=== PATIENT | male | born 1960 | race Caucasian/White ===

== ENCOUNTER 2019-10-24 12:57 | Emergency (ER) | payer BC ==
--- NOTE | 2019-10-24 13:23 | EDM.PDOC ---
ED HPI GENERAL MEDICAL PROBLEM - General Chief Complaint: General Stated Complaint: COUGH,BODY ACHES,FEVER Time Seen by Provider: 10/24/19 13:22 Source of Information: Reports: Patient History Limitations: Reports: No Limitations - History of Present Illness INITIAL COMMENTS - FREE TEXT/NARRATIVE: developed fever with mild cough. This is progressed with body aches increased fever and worsening cough. Beyond 48 hour Tamiflu window at this time. Blood sugars have been averaging in 120s only does not test daily. Onset: Gradual Onset Date: 10/22/19 Onset Time: 12:00 Duration: Day(s):, Getting Worse Location: Reports: Head, Chest Quality: Reports: Burning Severity: Moderate Improves with: Reports: None Worsens with: Reports: Breathing Associated Symptoms: Reports: Cough, Fever/Chills Treatments [employer]: Reports: Acetaminophen - Related Data Allergies Allergy/AdvReac Type Severity Reaction Status Date / Time No Known Allergies Allergy Verified 10/24/19 13:08 Home Meds: Home Meds lisinopriL [Lisinopril] 40 mg PO DAILY 10/24/19 [History] Past Medical History Cardiovascular History: Reports: None, High Cholesterol Respiratory History: Reports: None Psychiatric History: Reports: None Endocrine/Metabolic History: Reports: Diabetes, Type II Social & Family History - Family History Family Medical History: Noncontributory ED ROS GENERAL - Review of Systems Review Of Systems: See Below Constitutional: Reports: Fever, Chills, Malaise HEENT: Reports: No Symptoms Respiratory: Reports: Cough Cardiovascular: Reports: No Symptoms. Denies: Chest Pain Endocrine: Reports: High Glucose GI/Abdominal: Reports: No Symptoms : Reports: No Symptoms Musculoskeletal: Reports: No Symptoms, Muscle Pain, Muscle Stiffness Skin: Reports: No Symptoms Neurological: Reports: No Symptoms Psychiatric: Reports: No Symptoms Hematologic/Lymphatic: Reports: No Symptoms Immunologic: Reports: No Symptoms ED EXAM, GENERAL - Physical Exam Exam: See Below Exam Limited By: No Limitations General Appearance: Alert, WD/WN, No Apparent Distress Ears: Normal External Exam, Normal Canal, Hearing Grossly Normal, Normal TMs Nose: Normal Inspection, Normal Mucosa, No Blood Throat/Mouth: Normal Inspection, Normal Lips, Normal Teeth, Normal Gums, Normal Oropharynx, Normal Voice, No Airway Compromise Head: Atraumatic, Normocephalic Neck: Normal Inspection, Supple, Non-Tender, Full Range of Motion Respiratory/Chest: No Respiratory Distress, Lungs Clear, Normal Breath Sounds, No Accessory Muscle Use, Chest Non-Tender Cardiovascular: Normal Peripheral Pulses, Regular Rate, Rhythm, No Edema, No Gallop, No JVD, No Murmur, No Rub GI/Abdominal: Normal Bowel Sounds, Soft, Non-Tender, No Organomegaly, No Distention, No Abnormal Bruit, No Mass (Male) Exam: Deferred Rectal (Males) Exam: Deferred Back Exam: Normal Inspection Extremities: Normal Inspection, Normal Range of Motion Neurological: Alert, Oriented, CN II-XII Intact, Normal Cognition, Normal Gait, Normal Reflexes, No Motor/Sensory Deficits Psychiatric: Normal Affect, Normal Mood Skin Exam: Warm, Dry, Intact, Normal Color, No Rash Course - Vital Signs Last Recorded V/S: Last Vital Signs Temp 36.8 C 10/24/19 13:03 Pulse 105 H 10/24/19 13:03 Resp 16 10/24/19 13:03 BP 152/83 H 10/24/19 13:03 Pulse Ox 93 L 10/24/19 13:03 - Orders/Labs/Meds Labs: Laboratory Tests 10/24/19 10/24/19 Range/Units 13:25 13:25 WBC 6.25 (5.00-10.00) 10^3/uL RBC 4.98 (4.50-6.00) 10^6/uL Hgb 15.0 (13.0-17.0) g/dL Hct 43.4 (40.0-52.0) % MCV 87.1 (82.0-92.0) fL MCH 30.1 (27.0-31.0) pg MCHC 34.6 (32.0-36.0) g/dL RDW 13.0 (11.5-14.5) % Plt Count 111 L (150-400) 10^3/uL MPV 10.5 H (7.4-10.4) fL Immature Gran % (Auto) 0.0 (0.0-5.0) % Neut % (Auto) 81.7 H (50.0-70.0) % Lymph % (Auto) 8.3 L (20.0-40.0) % Nicholas % (Auto) 9.6 H (2.0-8.0) % Eos % (Auto) 0.2 L (1.0-3.0) % Baso % (Auto) 0.2 (0.0-1.0) % Immature Gran # (Auto) 0.00 (0.00-0.50) 10^3/uL Neut # (Auto) 5.11 (2.50-7.00) 10^3/uL Lymph # (Auto) 0.52 L (1.00-4.00) 10^3/uL Nicholas # (Auto) 0.60 (0.10-0.80) 10^3/uL Eos # (Auto) 0.01 L (0.10-0.30) 10^3/uL Baso # (Auto) 0.01 (0.00-0.10) 10^3/uL Sodium 143 (136-145) mmol/L Potassium 3.7 (3.3-5.3) mmol/L Chloride 103 (98-115) mmol/L Carbon Dioxide 21.9 (21.0-32.0) mmol/L Anion Gap 21.8 H (5-15) mmol/L BUN 13 (6-25) mg/dL Creatinine 0.97 (0.51-1.17) mg/dL Est Cr Clr Drug Dosing 95.34 mL/min Estimated GFR (MDRD) > 60 mL/min Glucose 233 H (75 - 99) mg/dL Calcium 8.3 L (8.7-10.3) mg/dL Departure - Departure Time of Disposition: 14:12 Disposition: Home, Self-Care 01 Condition: Good Clinical Impression: Influenza B, Elevated glucose level - Discharge Information *PRESCRIPTION DRUG MONITORING PROGRAM REVIEWED*: Not Applicable *COPY OF PRESCRIPTION DRUG MONITORING REPORT IN PATIENT LORI: Not Applicable Instructions: Cough, Adult Referrals: Namrata Mendez MD [Primary Care Provider] - Forms: ED Department Discharge Additional Instructions: Increase your fluid intake. Tylenol or ibuprofen for fever, chills, and body aches. Continue your medications as directed He need to get as much rest as possible. You are considered contagious for 24 hours after you have had no fever without the use of Tylenol or Motrin. Need to recheck if symptoms worsen or if worsening shortness of breath cough develops. Use sugarless cough drops. Sepsis Event Note - Evaluation Sepsis Screening Result: Possible Sepsis Risk - Focused Exam Vital Signs: Vital Signs Temp Pulse Resp BP Pulse Ox 10/24/19 13:03 36.8 C 105 H 16 152/83 H 93 L Date Exam was Performed: 10/24/19 Time Exam was Performed: 14:11 - Problem List & Annotations (1) Influenza B SNOMED Code(s): 26527726 Code(s): J10.1 - FLU DUE TO OTH IDENT INFLUENZA VIRUS W OTH RESP MANIFEST Status: Acute Priority: High Current Visit: Yes (2) Elevated glucose level SNOMED Code(s): 66778622 Code(s): R73.09 - OTHER ABNORMAL GLUCOSE Status: Chronic Priority: Medium Current Visit: Yes - Problem List Review Problem List Initiated/Reviewed/Updated: Yes - Assessment/Plan Plan: Increase your fluid intake. Tylenol or ibuprofen for fever, chills, and body aches. Continue your medications as directed He need to get as much rest as possible. You are considered contagious for 24 hours after you have had no fever without the use of Tylenol or Motrin. Need to recheck if symptoms worsen or if worsening shortness of breath cough develops. Use sugarless cough drops.
[2019-10-24 13:57] LABS: ANION GAP 21.8 mmol/L (5-15); CHLORIDE,CL 103 mmol/L (98-115); SODIUM,NA 143 mmol/L (136-145)
== END 2019-10-24 14:15 | disposition home or self-care (01) ==
LOC: KA.ED 12:57
DX: J10.1 Influenza due to other identified influenza virus with other respiratory manifestations (principal); E11.65 Type 2 diabetes mellitus with hyperglycemia
CPT/HCPCS: 36415; 80048; 85025; 87804; 99283